=== PATIENT | male | born 1955 | race Two or more races ===

== ENCOUNTER 2016-09-12 19:05 | Emergency (ER) | payer MEDICAID ==
[2016-09-12 20:00] LABS: Basophils # (auto) 0 uL; Basophils % (auto) 0.4 % (0.0-2.0); CONDITION Y; Eosinophils # (auto) 0.5 uL; Eosinophils % (auto) 7.1 % (0.0-7.0); Hematocrit 42.2 % (41.0-53.0); Hemoglobin 14.3 g/dL (13.5-17.5); Lymphocytes # (auto) 2.2 uL; Lymphocytes % (auto) 30.9 % (10.0-50.0); Mean Corpuscular Hemoglobin 28.9 pg (28.0-32.0); Mean Corpuscular Hgb Conc. 33.9 g/dL (32.0-36.0); Mean Corpuscular Volume 85.2 fL (80.0-100.0); Mean Platelet Volume 7.8 fL (7.4-10.4); Monocytes # (auto) 0.5 uL; Monocytes % (auto) 7.7 % (0.0-12.0); Neutrophils # (auto) 3.8 uL; Neutrophils % (auto) 53.9 % (37.0-80.0); Platelet Count (auto) 325 10^3/uL (140-450); Red Cell Distribution Width 12.3 % (11.6-16.0); White Blood Cell 7.1 10^3/uL (4.4-10.8)
[2016-09-12] MEDS ORDERED: MORPHINE SULF INJ 2 MG/ML SYRINGE 1ML IV ONE (20:15)
[2016-09-12 20:27] LABS: Alkaline Phosphatase 51 U/L (45-117); Anion Gap 8 (5-15); Aspartate Aminotransferase 14 U/L (15-37); BUN/Creatinine Ratio 17.2; Bilirubin, Total 0.4 mg/dL (0.2-1.0); Blood Urea Nitrogen 16 mg/dL (7-18); Carbon Dioxide 28 mmol/L (21-32); Chloride 106 mmol/L (98-107); GFR African American 107 mL/min; GFR Non-African American 88 mL/min; Glucose 91 mg/dL (74-106); Magnesium 2.4 mg/dL (1.6-2.6); Sodium 142 mmol/L (136-145)
[2016-09-12 21:06] VITALS: BP 130/71
== END 2016-09-12 21:57 | disposition home or self-care (01) ==
LOC: ER 19:07
DX: J01.90 Acute sinusitis, unspecified (principal); I10 Essential (primary) hypertension; R53.1 Weakness; R42 Dizziness and giddiness
CPT/HCPCS: 36415; 70450; 71020; 80053; 83735; 84484; 85025; 93005; 96374; 99285; J2270

== ENCOUNTER 2021-11-23 11:23 | Emergency (ER) | payer OTHER ==
[~2021-11-23] VITALS: Ht 162.6 cm; Wt 97.5 kg
[2021-11-23 11:39] VITALS: BP 129/73
== END 2021-11-23 15:10 | disposition home or self-care (01) ==
LOC: ER 11:23
DX: M25.562 Pain in left knee (principal); E78.5 Hyperlipidemia, unspecified; I10 Essential (primary) hypertension; M79.605 Pain in left leg; X58.XXXA Exposure to other specified factors, initial encounter; Y93.89 Activity, other specified; Y92.89 Other specified places as the place of occurrence of the external cause; Y99.8 Other external cause status
CPT/HCPCS: 93971

== ENCOUNTER → 2022-05-23 | Outpatient (CLI) | payer OTHER ==
[2022-05-23 12:21] LABS: Basophils # (auto) 0 10 ^3/uL (0-0.2); Basophils % (auto) 0.9 % (0.0-2.0); Eosinophils # (auto) 0.5 10 ^3/uL (0-0.8); Eosinophils % (auto) 9.6 % (0.0-7.0); Hematocrit 43.1 % (41.0-53.0); Hemoglobin 14.6 g/dL (13.5-17.5); Lymphocytes # (auto) 2.2 10 ^3/uL (0.4-5.4); Lymphocytes % (auto) 39.4 % (10.0-50.0); Mean Corpuscular Hemoglobin 28.4 pg (28.0-32.0); Mean Corpuscular Hgb Conc. 33.9 g/dL (32.0-36.0); Mean Corpuscular Volume 83.8 fL (80.0-100.0); Monocytes # (auto) 0.6 10 ^3/uL (0-1.3); Monocytes % (auto) 10.2 % (0.0-12.0); Neutrophils # (auto) 2.2 10 ^3/uL (1.6-8.6); Neutrophils % (auto) 39.9 % (37.0-80.0); Nucleated Red Blood Cells % 0.3 %; Red Blood Cells 5.15 10^6/uL (4.5-5.90); Red Cell Distribution Width 12.8 % (11.8-14.3); White Blood Cell 5.5 10^3/uL (4.4-10.8)
[2022-05-23 13:23] LABS: Potassium 3.8 mmol/L (3.5-5.1)
[2022-05-23 13:45] LABS: Albumin 3.7 g/dL (3.4-5.0)
[2022-05-23 14:11] LABS: BUN/Creatinine Ratio 17.6 (10.0-20.0); Bilirubin, Total 0.5 mg/dL (0.2-1.0); Calcium 9.2 mg/dL (8.5-10.1); Total Protein 7.8 g/dL (6.4-8.2)
== END | disposition home or self-care (01) ==
LOC: LAB 11:21
PROVIDERS: ATTEND Student in an Organized Health Care Education/Training Program
DX: I10 Essential (primary) hypertension (principal); E78.5 Hyperlipidemia, unspecified
CPT/HCPCS: 36415; 80053; 80061; 84443; 85025

== ENCOUNTER → 2022-05-29 | Outpatient (CLI) | payer OTHER | END | disposition home or self-care (01) | LOC: LAB 15:19 | PROVIDERS: ATTEND Student in an Organized Health Care Education/Training Program | DX: I10 Essential (primary) hypertension (principal); E78.5 Hyperlipidemia, unspecified | CPT/HCPCS: 82274 ==

== ENCOUNTER 2023-03-14 09:40 | Day surgery (SDC) | payer OTHER ==
[2023-03-07 14:27] LABS: Basophils # (auto) 0 10 ^3/uL (0-0.2); Basophils % (auto) 0.8 % (0.0-2.0); Eosinophils # (auto) 0.3 10 ^3/uL (0-0.8); Eosinophils % (auto) 5.6 % (0.0-7.0); Hematocrit 41.8 % (41.0-53.0); Lymphocytes # (auto) 1.6 10 ^3/uL (0.4-5.4); Lymphocytes % (auto) 29.2 % (10.0-50.0); Mean Corpuscular Hemoglobin 28.1 pg (28.0-32.0); Mean Corpuscular Hgb Conc. 33.5 g/dL (32.0-36.0); Monocytes # (auto) 0.5 10 ^3/uL (0-1.3); Monocytes % (auto) 9.1 % (0.0-12.0); Neutrophils % (auto) 55.3 % (37.0-80.0); Nucleated Red Blood Cells % 0.1 %; Red Blood Cells 4.97 10^6/uL (4.5-5.90); Red Cell Distribution Width 12.6 % (11.8-14.3); White Blood Cell 5.5 10^3/uL (4.4-10.8)
[2023-03-07 14:56] LABS: Partial Thromboplastin Time 28.2 SEC (24.5-34.5); Prothrombin Time 10.5 sec (9.3-11.8)
[2023-03-07 15:28] LABS: Alanine Aminotransferase 31 U/L (7-40); Albumin 4.4 g/dL (3.2-4.8); Alkaline Phosphatase 62 U/L (46-116); Anion Gap 6 (5-15); Aspartate Aminotransferase 17 U/L (13-40); BUN/Creatinine Ratio 11.4 (10.0-20.0); Bilirubin, Total 0.3 mg/dL (0.2-1.0); Blood Urea Nitrogen 8 mg/dL (9-23); Calcium 9.1 mg/dL (8.7-10.4); Carbon Dioxide 26 mmol/L (20-30); Chloride 108 mmol/L (98-107); Glucose 100 mg/dL (74-106); Sodium 140 mmol/L (136-145); Total Protein 7.4 g/dL (5.7-8.2)
[~2023-03-14] VITALS: Ht 182.9 cm; Wt 96.2 kg
[~2023-03-14 09:40] MED LIST: ACET-1080 PO; ATOR20TA PO; FENO160T PO; FLUT110A IN; LEVO137T3 PO; METO25TA93 PO
[2023-03-14] MEDS ORDERED: SODIUM CHLORIDE LOCK 10 ML ONE (09:44)
[2023-03-14 10:31] VITALS: O2SAT 96
[2023-03-14] MEDS: MIDAZOLAM HCL 5 MG/ML-1ML VIAL ONE (10:34)
[2023-03-14] MEDS: diphenhdrAMINE HCL 50 MG/1 ML VL ONE (10:34)
[2023-03-14] MEDS: fentaNYL CITRATE 100 MCG/2 ML VL ONE (10:34)
[2023-03-14 11:00] VITALS: PULSE 75; RESP 14; TEMP 97.5; O2SAT 94
[2023-03-14 11:30] VITALS: BP 140/84; PULSE 66; RESP 18; O2SAT 95
== END 2023-03-14 11:50 | disposition home or self-care (01) ==
LOC: GI 09:40
PROVIDERS: ATTEND Internal Medicine Gastroenterology
DX: R19.5 Other fecal abnormalities (principal); K92.2 Gastrointestinal hemorrhage, unspecified; K64.8 Other hemorrhoids; K63.5 Polyp of colon; I10 Essential (primary) hypertension; E03.9 Hypothyroidism, unspecified; M19.90 Unspecified osteoarthritis, unspecified site; Z79.899 Other long term (current) drug therapy; Z98.890 Other specified postprocedural states
CPT/HCPCS: 36415; 45385; 80053; 85025; 85610; 85730; 88305; J1200; J2250; J3010; J7030; 99152; 99153

== ENCOUNTER → 2023-05-10 | Outpatient (CLI) | payer OTHER | END | disposition home or self-care (01) | LOC: LAB 06:41 | PROVIDERS: ATTEND Student in an Organized Health Care Education/Training Program | DX: Z12.11 Encounter for screening for malignant neoplasm of colon (principal) | CPT/HCPCS: 82270 ==

== ENCOUNTER → 2023-07-18 | Outpatient (CLI) | payer OTHER ==
[2023-07-18 11:35] LABS: Basophils # (auto) 0 10 ^3/uL (0-0.2); Basophils % (auto) 0.6 % (0.0-2.0); Eosinophils # (auto) 0.3 10 ^3/uL (0-0.8); Eosinophils % (auto) 4.7 % (0.0-7.0); Hematocrit 43.9 % (41.0-53.0); Hemoglobin 14.7 g/dL (13.5-17.5); Lymphocytes # (auto) 1.7 10 ^3/uL (0.4-5.4); Lymphocytes % (auto) 25.9 % (10.0-50.0); Mean Corpuscular Hemoglobin 28.4 pg (28.0-32.0); Mean Corpuscular Hgb Conc. 33.4 g/dL (32.0-36.0); Mean Corpuscular Volume 84.9 fL (80.0-100.0); Monocytes # (auto) 0.5 10 ^3/uL (0-1.3); Monocytes % (auto) 8.1 % (0.0-12.0); Neutrophils % (auto) 60.7 % (37.0-80.0); Nucleated Red Blood Cells % 0.2 %; Red Blood Cells 5.17 10^6/uL (4.5-5.90); Red Cell Distribution Width 12.8 % (11.8-14.3); White Blood Cell 6.6 10^3/uL (4.4-10.8)
[2023-07-18 11:57] LABS: Alanine Aminotransferase 28 U/L (7-40); Albumin 4.6 g/dL (3.2-4.8); Alkaline Phosphatase 71 U/L (46-116); Anion Gap 1 (5-15); Aspartate Aminotransferase 18 U/L (13-40); BUN/Creatinine Ratio 13.3 (10.0-20.0); Blood Urea Nitrogen 10 mg/dL (9-23); Calcium 9.8 mg/dL (8.5-10.1); Carbon Dioxide 30 mmol/L (20-30); Chloride 108 mmol/L (98-107); Cholesterol 109 mg/dL (< 200); Glucose 97 mg/dL (74-106); HDL Cholesterol 27 mg/dL (40-59); LDL Cholesterol 50 mg/dL (< 100); Potassium 4.2 mmol/L (3.5-5.1); Sodium 139 mmol/L (136-145); Total Protein 7.8 g/dL (5.7-8.2); Triglycerides 203 mg/dL (< 150)
== END | disposition home or self-care (01) ==
LOC: LAB 11:08
PROVIDERS: ATTEND Student in an Organized Health Care Education/Training Program
DX: I10 Essential (primary) hypertension (principal); E78.5 Hyperlipidemia, unspecified; E66.3 Overweight; F32.A Depression, unspecified
CPT/HCPCS: 36415; 80053; 80061; 84443; 85025

== ENCOUNTER → 2024-04-18 | Outpatient (CLI) | payer OTHER ==
[2024-04-18 11:23] LABS: Urine Bacteria None Seen /hpf (None Seen)
[2024-04-18 11:44] LABS: Basophils # (auto) 0 10 ^3/uL (0-0.2); Basophils % (auto) 0.9 % (0.0-2.0); Eosinophils # (auto) 0.2 10 ^3/uL (0-0.8); Eosinophils % (auto) 4.4 % (0.0-7.0); Hematocrit 43.5 % (41.0-53.0); Lymphocytes # (auto) 1.6 10 ^3/uL (0.4-5.4); Lymphocytes % (auto) 33.4 % (10.0-50.0); Mean Corpuscular Hemoglobin 29.3 pg (28.0-32.0); Mean Corpuscular Hgb Conc. 34.5 g/dL (32.0-36.0); Mean Corpuscular Volume 84.9 fL (80.0-100.0); Monocytes # (auto) 0.4 10 ^3/uL (0-1.3); Monocytes % (auto) 7.8 % (0.0-12.0); Neutrophils # (auto) 2.6 10 ^3/uL (1.6-8.6); Neutrophils % (auto) 53.5 % (37.0-80.0); Nucleated Red Blood Cells % 0.1 %; Platelet Count (auto) 252 10^3/uL (140-450); Red Blood Cells 5.13 10^6/uL (4.5-5.90); Red Cell Distribution Width 12.8 % (11.8-14.3); White Blood Cell 4.9 10^3/uL (4.4-10.8)
[2024-04-18 11:46] LABS: Urine Blood Negative /uL (Negative); Urine Clarity Clear (Clear); Urine Color Light-Yellow (Yellow); Urine Protein, UAD Negative (Negative); Urine Squamous Epithelial Cell FEW /hpf (<5); Urine Urobilinogen Normal (Negative); Urine WBC < 1 /HPF (0-3); Urine pH 5.5 (5.0-9.0)
[2024-04-18 12:26] LABS: Alanine Aminotransferase 26 U/L (7-40); Albumin 4.8 g/dL (3.2-4.8); Alkaline Phosphatase 60 U/L (46-116); Anion Gap 6 (5-15); Aspartate Aminotransferase 21 U/L (13-40); BUN/Creatinine Ratio 10.5 (10.0-20.0); Blood Urea Nitrogen 9 mg/dL (9-23); Calcium 9.8 mg/dL (8.7-10.4); Carbon Dioxide 29 mmol/L (20-31); Chloride 105 mmol/L (98-107); Glucose 97 mg/dL (74-106); LDL Cholesterol 77 mg/dL (< 100); Sodium 140 mmol/L (136-145); Total Protein 7.9 g/dL (5.7-8.2)
[2024-04-18 12:27] LABS: Bilirubin, Total 0.7 mg/dL (0.2-1.0); Cholesterol 139 mg/dL (< 200)
[2024-04-18 12:28] LABS: HDL Cholesterol 30 mg/dL (40-59); Triglycerides 211 mg/dL (< 150)
== END | disposition home or self-care (01) ==
LOC: LAB 11:05
PROVIDERS: ATTEND Licensed Practical Nurse
DX: I10 Essential (primary) hypertension (principal); E78.5 Hyperlipidemia, unspecified; E03.9 Hypothyroidism, unspecified; D36.9 Benign neoplasm, unspecified site; R53.82 Chronic fatigue, unspecified
CPT/HCPCS: 36415; 80053; 80061; 81001; 82274; 82306; 82607; 83036; 84443; 85025

== ENCOUNTER 2024-07-22 10:38 | Outpatient (CLI) | payer OTHER ==
[2024-07-22 10:57] LABS: Basophils # (auto) 0 10 ^3/uL (0-0.2); Basophils % (auto) 0.5 % (0.0-2.0); Eosinophils # (auto) 0.1 10 ^3/uL (0-0.8); Eosinophils % (auto) 1.9 % (0.0-7.0); Hematocrit 43.5 % (41.0-53.0); Hemoglobin 14.9 g/dL (13.5-17.5); Lymphocytes # (auto) 1.8 10 ^3/uL (0.4-5.4); Lymphocytes % (auto) 29.8 % (10.0-50.0); Mean Corpuscular Hemoglobin 29.3 pg (28.0-32.0); Mean Corpuscular Hgb Conc. 34.2 g/dL (32.0-36.0); Mean Corpuscular Volume 85.6 fL (80.0-100.0); Monocytes # (auto) 0.5 10 ^3/uL (0-1.3); Monocytes % (auto) 8.7 % (0.0-12.0); Neutrophils # (auto) 3.6 10 ^3/uL (1.6-8.6); Neutrophils % (auto) 59.1 % (37.0-80.0); Nucleated Red Blood Cells % 0.1 %; Platelet Count (auto) 235 10^3/uL (140-450); Red Blood Cells 5.08 10^6/uL (4.5-5.90); Red Cell Distribution Width 13.5 % (11.8-14.3); White Blood Cell 6.1 10^3/uL (4.4-10.8)
[2024-07-22 11:25] LABS: Alanine Aminotransferase 20 U/L (7-40); Albumin 4.5 g/dL (3.2-4.8); Alkaline Phosphatase 50 U/L (46-116); Anion Gap 8 (5-15); Aspartate Aminotransferase 16 U/L (<34); BUN/Creatinine Ratio 14.5 (10.0-20.0); Bilirubin, Total 0.9 mg/dL (0.2-1.0); Blood Urea Nitrogen 12 mg/dL (9-23); Calcium 9.6 mg/dL (8.7-10.4); Carbon Dioxide 26 mmol/L (20-31); Chloride 109 mmol/L (98-107); Cholesterol 133 mg/dL (< 200); Glucose 89 mg/dL (74-106); HDL Cholesterol 35 mg/dL (40-59); LDL Cholesterol 80 mg/dL (< 100); Potassium 3.8 mmol/L (3.5-5.1); Sodium 143 mmol/L (136-145); Total Protein 7.2 g/dL (5.7-8.2); Triglycerides 127 mg/dL (< 150)
== END 2024-07-22 17:00 | disposition home or self-care (01) ==
LOC: LAB 10:38
PROVIDERS: ATTEND Licensed Practical Nurse
DX: D36.9 Benign neoplasm, unspecified site (principal); I10 Essential (primary) hypertension; E78.5 Hyperlipidemia, unspecified; E03.9 Hypothyroidism, unspecified
CPT/HCPCS: 36415; 80053; 80061; 84443; 85025

== ENCOUNTER 2024-09-16 10:32 | Outpatient (CLI) | payer OTHER ==
[2024-09-16 11:37] LABS: Free T3 3.15 pg/mL (2.3-4.2)
[2024-09-16 11:38] LABS: Free T4 (Free Thyroxine) 1.37 ng/dL (0.89-1.76)
== END 2024-09-16 17:00 | disposition home or self-care (01) ==
LOC: LAB 10:32
PROVIDERS: ATTEND Licensed Practical Nurse
DX: E03.0 Congenital hypothyroidism with diffuse goiter (principal)
CPT/HCPCS: 36415; 84439; 84443; 84480; 84481; 86376

== ENCOUNTER → 2024-12-17 | Outpatient (CLI) | payer OTHER ==
[2024-12-17 12:52] LABS: Hematocrit 46.5 % (41.0-53.0); Hemoglobin 15.7 g/dL (13.5-17.5); Mean Corpuscular Hemoglobin 28.7 pg (28.0-32.0); Mean Corpuscular Volume 84.8 fL (80.0-100.0); Nucleated Red Blood Cells % 0.0 %
[2024-12-17 13:10] LABS: Alanine Aminotransferase 24 U/L (7-40); Albumin 4.7 g/dL (3.2-4.8); Alkaline Phosphatase 68 U/L (46-116); Anion Gap 8 (5-15); BUN/Creatinine Ratio 11.1 (10.0-20.0); Bilirubin, Total 0.7 mg/dL (0.2-1.0); Calcium 9.3 mg/dL (8.7-10.4); Carbon Dioxide 27 mmol/L (20-31); Chloride 106 mmol/L (98-107); Cholesterol 145 mg/dL (< 200); Glucose 90 mg/dL (74-106); Potassium 4.1 mmol/L (3.5-5.1); Sodium 141 mmol/L (136-145); Total Protein 8.2 g/dL (5.7-8.2)
[2024-12-17 13:15] LABS: Blood Urea Nitrogen 9 mg/dL (9-23); HDL Cholesterol 33 mg/dL (40-59); Triglycerides 219 mg/dL (< 150)
== END | disposition home or self-care (01) ==
LOC: LAB 11:56
PROVIDERS: ATTEND Licensed Practical Nurse
DX: I10 Essential (primary) hypertension (principal); E03.9 Hypothyroidism, unspecified; E78.5 Hyperlipidemia, unspecified; Z13.1 Encounter for screening for diabetes mellitus
CPT/HCPCS: 36415; 80053; 80061; 82043; 83036; 84439; 84443; 85025

== ENCOUNTER 2025-01-14 13:01 | Outpatient (CLI) | payer OTHER | END 2025-01-14 17:00 | disposition home or self-care (01) | LOC: Rad HDHVI 13:01 | PROVIDERS: ATTEND Internal Medicine Cardiovascular Disease | DX: I11.9 Hypertensive heart disease without heart failure (principal); E78.5 Hyperlipidemia, unspecified | CPT/HCPCS: 93306 ==

== ENCOUNTER 2025-01-21 09:15 | Outpatient (CLI) | payer OTHER ==
[~2025-01-21] VITALS: Ht 182.9 cm; Wt 95.3 kg
[2025-01-21] MEDS ORDERED: ADENOSINE 90 MG/30 ML INJ IV ONE (09:54)
[2025-01-21] MEDS ORDERED: ADENOSINE 80 MG in GIVE UN-DILUTED 0 ML IV ONE (11:30)
== END 2025-01-21 17:00 | disposition home or self-care (01) ==
LOC: Rad HDHVI 09:15
PROVIDERS: ATTEND Internal Medicine Cardiovascular Disease
DX: E78.5 Hyperlipidemia, unspecified (principal); R07.89 Other chest pain; R94.31 Abnormal electrocardiogram [ECG] [EKG]; I10 Essential (primary) hypertension
CPT/HCPCS: 78452; A9500; J0153; 93017